=== PATIENT | female | born 1960 | race Caucasian/White ===

== ENCOUNTER 2020-09-02 10:37 | Outpatient (CLI) | payer BC, SELFPAY ==
--- NOTE | ~2020-09-02 | CT_ITS ---
EXAMINATION: CT chest abdomen pelvis w con EXAM DATE: 09/02/2020 11:18 INDICATION: Multiple pulmonary nodules, abn CTA of abd/pelvis, Anal cancer. Hypertension diarrhea. On chemotherapy and radiation. TECHNIQUE: Spiral CT of the chest, abdomen and pelvis was performed following intravenous injection o f 100 mL Omnipaque 350. Axial, coronal and sagittal images chest, abdomen and pelvis were reviewed. Coronal maximum intensity pixel images of chest reviewed. The dose-length product (DLP) for this ex amination was 292.75 mGy-cm. The exposure was tailored according to patient size (auto mA exposure c ontrol), and iterative reconstruction (ASIR) was used as additional dose reduction technique. There is no prior study for comparison. FINDINGS: CHEST: There is moderate emphysema and hyperinflation. Right middle lobe scarring or atelectasis. T here are no pleural or pericardial effusions. Tracheobronchial tree is patent. There is no medias tinal, hilar or axillary lymphadenopathy. There is no pneumothorax. Heart normal in size. There is mild coronary arterial calcification, arterial sclerosis. Enlarged right thyroid lobe, could be from a single 3 cm nodule. ABDOMEN PELVIS: The liver, spleen, adrenal glands and pancreas are unremarkable. Gallbladder is unre markable. No biliary obstruction. Portal and splenic veins are patent. Kidneys enhance symmetrical ly. There is no hydronephrosis. Possible hysterectomy versus atrophic uterus. The bladder is unre markable. There is moderate scattered arteriosclerotic disease. There is rectosigmoid mucosal enhancement, 4 approximately 5 cm segment. There is nonspecific nodule of peripherally enhancing tissue or cystic lesion measuring 1.6 cm and the left presacral region, mos t likely necrotic lymph node. This was indicated on axial image 190. The appendix is normal. There i s small sliding gastroesophageal hiatal hernia. There is expected amount of colonic stool. No free intraperitoneal gas. There are no osteoblastic or osteolytic lesions identified. There is cervical fusion hardware. IMPRESSION: 1. Enhancing rectosigmoid mucosa urothelium. 2. Presacral 1.6 cm mass appearance most consistent with necrotic lymph node. 3. Moderate emphysema and hyperinflation. 4. No suspicious pulmonary nodules. Reviewed, dictated and finalized at location A.
[2020-09-02 11:05] LABS: Estimated Glomerular Filt Rate 51
== END 2020-09-02 10:38 ==
PROVIDERS: Visit Provider Radiology Radiation Oncology
DX: R92.8 Other abnormal and inconclusive findings on diagnostic imaging of breast (principal); Z85.038 Personal history of other malignant neoplasm of large intestine; R93.89 Abnormal findings on diagnostic imaging of other specified body structures; Z85.048 Personal history of other malignant neoplasm of rectum, rectosigmoid junction, and anus; J43.9 Emphysema, unspecified
CPT/HCPCS: 71260; 74177; Q9967

== ENCOUNTER → 2021-03-09 14:02 | Outpatient (CLI) | payer BC, SELFPAY ==
--- NOTE | ~2021-03-09 | CT_ITS ---
EXAMINATION: CT abdomen pelvis w con DATE: 03/09/2021 14:32 INDICATION: Anal cancer. TECHNIQUE: Computed tomography (CT) of the abdomen and pelvis was performed with 100 cc Omnipaque 350 intravenous contrast. The dose-length product was 167.73 mGy-cm. Automated exposure control and iter ative reconstruction technique were employed. COMPARISON: CT dated 09/02/2020 FINDINGS: There is emphysema. No significant pleural or pericardial effusion. Heart size is normal. T he liver, spleen, pancreas, adrenal glands and kidneys are unremarkable. Gallbladder is present. Ther e are calcified granulomas of the spleen. There is hepatomegaly. The pancreas, adrenal glands and kid neys are unremarkable. Nonobstructive bowel gas pattern. The previously identified enhancing rectal m ass not seen on current study. There are surgical changes in the left pelvis. There is a peripherally enhancing low-density 2.2 cm left presacral mass, likely necrotic lymph node, increased in size comp ared with prior examination. There is atherosclerosis without evidence for aneurysm. There is thicken ing of the gastric wall, suspicious for gastritis. IMPRESSION: 1. Enhancing rectosigmoid mass not definitely visualized on the current study. Enlarging low density peripherally enhancing 2.2 cm left presacral mass, likely necrotic lymph node, suspicious for metasta tic disease. Consider correlation with pet/CT scan. 2: Thickening of the gastric wall, suspicious for gastritis, although underlying mass is not exclude d. Reviewed, dictated and finalized at location A. 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 Enhancing rectosigmoid mass not definitely visualized on the current study. Enlarging low density peripherally enhancing 2.2 cm left presacral mass, likely necrotic lymph node, suspicious for metastatic disease. Consider correlation w ith pet/CT scan. 2: Thickening of the gastric wall, suspicious for gastritis, although underlyi ng mass is not excluded.
[2021-03-09 14:21] LABS: Estimated Glomerular Filt Rate > 60
== END ==
PROVIDERS: PCP Family Medicine; Visit Provider Internal Medicine
DX: Z85.048 Personal history of other malignant neoplasm of rectum, rectosigmoid junction, and anus (principal); R93.5 Abnormal findings on diagnostic imaging of other abdominal regions, including retroperitoneum
CPT/HCPCS: 74177; Q9967

== ENCOUNTER 2021-05-18 08:27 | Outpatient (CLI) | payer OTHER, SELFPAY ==
--- NOTE | 2021-05-18 | ECHO_ITS ---
Patient Info Name: Ivonne Ames Age: 61 years : 1960 Gender: Female Ht: 62 in Wt: 92 lbs BSA: 1.34 m2 HR: 60 bpm BP: 167 / 99 mmHg Technical Quality: Fair Exam Date: 05/18/2021 9:04 AM Exam Location: [facility] [place] Patient Status: Outpatient Admit Date: 05/18/2021 Staff Ordering Physician: Daren, Ric Samaniego MD International Trade Analyst: Trixie Larsen RDCS Attending Provider: Lemuel, Ric Samaniego MD Referring Physician: Daren TOBIAS; Exam Type: CA echo doppler color flow Study Info Indications H34.11 - CENTRAL RETINAL ARTERY OCCLUSION RIGHT EYE Complete two-dimensional, color flow and Doppler transthoracic echocardiogram is performed. Summary 1. Complete two-dimensional, color flow and Doppler transthoracic echocardiogram is performed. 2. Normal LV size and wall thickness. Normal LV systolic and diastolic function. No significant valvular abnormalities. RVSP 28 mmHg. Sinus rhythm. Left Ventricle Left ventricular chamber dimension is normal. Left ventricular systolic function is normal, estimated at 60-65%. There is no increased left ventricular wall thickness. The left ventricular diastolic function is normal. Left Atria Left atrial chamber dimension is normal. Right Atria Right atrial chamber dimension is normal. Aortic Valve The aortic valve is normal. There is no aortic valve stenosis. Pulmonic Valve The pulmonic valve is normal. Mitral Valve The mitral valve has normal leaflets. There is trace mitral valve regurgitation. The mitral valve annulus is mildly calcified. Tricuspid Valve The tricuspid valve leaflets are normal. There is trace tricuspid valve regurgitation. Pericardium/Pleural The pericardium appears normal. Inferior Vena Cava Normal inferior vena cava with >50% collapse upon inspiration consistent with normal right atrial pressure, 10 mmHg. Left Ventricular Outflow Tract Name Value Normal LVOT 2D LVOT Diameter 1.8 cm LVOT Doppler LVOT Peak Gradient 3 mmHg LVOT Mean Gradient 1 mmHg LVOT VTI 16 cm LVOT VTI/AV VTI Ratio 0.8 LVOT Stroke Volume 39 ml LVOT CO 2.3 l/min LVOT CI 1.7 l/min/m2 Pulmonic Valve Name Value Normal RVOT Doppler RVOT Peak Gradient 1 mmHg PV Doppler PV Peak Gradient 2 mmHg Mitral Valve Name Value Normal MV Doppler
== END 2021-05-18 08:28 | disposition home or self-care (01) ==
PROVIDERS: PCP Family Medicine; Visit Provider Family Medicine
DX: R07.89 Other chest pain (principal); H34.11 Central retinal artery occlusion, right eye
CPT/HCPCS: 93306